=== PATIENT | male | born 1945 | race Caucasian/White ===

== ENCOUNTER → 2017-07-06 | Outpatient (CLI) | payer BC, MEDICARE ==
--- NOTE | 2017-07-06 12:43 | ECHOF ---
Referral Reason:hypertension I10 MEASUREMENTS -------- HEIGHT: 188.0 cm WEIGHT: 96.2 kg BP: RVIDd: 3.1 cm (< 3.3) IVSd: 1.0 cm (0.6 - 1.1) LVIDd: 5.3 cm (3.9 - 5.3) LVPWd: 1.1 cm (0.6 - 1.1) IVSs: 1.4 cm LVIDs: 3.7 cm LVPWs: 1.6 cm LA Diam: 4.2 cm (2.7 - 3.8) LAESV Index (A-L): 27.60 ml/m Ao Diam: 3.6 cm (2.0 - 3.7) AV Cusp: 2.4 cm (1.5 - 2.6) LA Diam: 4.2 cm (2.7 - 3.8) MV EXCURSION: 25.683 mm (> 18.000) MV EF SLOPE: 124 mm/s (70 - 150) EPSS: 0.9 cm MV E Edison: 0.56 m/s MV DecT: 149 ms MV A Edison: 0.53 m/s MV E/A Ratio: 1.05 RAP: 5.00 mmHg RVSP: 20.59 mmHg FINDINGS -------- Sinus rhythm. This was a technically good study. The left ventricular size is normal. Left ventricular wall thickness is normal. Overall left vent ricular systolic function is mildly impaired with, an EF between 45 - 50 %. Basal inferior LV wall motion is hypokinetic. The right ventricle is normal in size. The left atrium is mildly dilated. Normal LA size by volume 22+/-6 ml/m2. The right atrial size is normal. The aortic valve is trileaflet, and appears structurally normal. No aortic stenosis or regurgitation. Mild mitral annular calcification present. Mild mitral regurgitation is present. Mild tricuspid regurgitation present. There is no evidence of pulmonary hypertension. The right v entricular systolic pressure, as measured by Doppler, is 20.59mmHg. There is no pulmonic regurgitation present. The aortic root size is normal. There is no pericardial effusion. CONCLUSIONS -------- 1. The left ventricular size is normal. 2. Left ventricular wall thickness is normal. 3. The left atrium is mildly dilated. 4. Normal LA size by volume 22+/-6 ml/m2. 5. The aortic valve is trileaflet, and appears structurally normal. No aortic stenosis or regurgitati on. 6. Mild mitral annular calcification present. 7. Mild mitral regurgitation is present. 8. Mild tricuspid regurgitation present. 9. There is no evidence of pulmonary hypertension. 10. The right ventricular systolic pressure, as measured by Doppler, is 20.59mmHg. 11. There is no pulmonic regurgitation present. 12. The aortic root size is normal. CHIEF NURSE ANESTHETIST: Danette Gr RDCS
== END | disposition home or self-care (01) ==
LOC: RADECHMAIN 11:14
PROVIDERS: ATTEND Internal Medicine Cardiovascular Disease
DX: I08.1 Rheumatic disorders of both mitral and tricuspid valves (principal); I10 Essential (primary) hypertension
CPT/HCPCS: 93306

== ENCOUNTER 2023-01-28 13:14 | Inpatient (IN) | payer BC, MEDICARE ==
--- NOTE | 2023-01-28 13:47 | ED ---
Arrhythmia/Palpitations HPI - General Source: patient, RN notes reviewed Mode of arrival: ambulatory Limitations: no limitations <Jaquan Land - Last Filed: 01/28/23 13:46> - General Source: patient, RN notes reviewed, old records reviewed <Rickey Palencia - Last Filed: 01/28/23 20:10> - General Chief Complaint: Arrhythmia/Palpitations Stated Complaint: ABNORMAL EKG Time Seen by Provider: 01/28/23 13:46 - History of Present Illness Initial Comments: 77-year-old male presents emergency Department from PCPs clinic for evaluation of A fibrillation. Patient has no history states she's not been feeling well states he is sent over there for further evaluation denies chest pain. He states he has some congestion, upper respiratory symptoms. (Jaquan Land) Patient presents initially evaluated as a quick note. He has been feeling lightheaded and had 2 syncopal episodes last night. Is not on blood thinners. Was found to have new onset A. fib at his PCPs office. Presents for further evaluation at this time. Has no acute complaints at this time. Denies any coughing. Denies any nausea, vomiting, abdominal pain. Unknown if he has had. No history of A. fib. No lower extremity edema or swelling or pain. No history of blood clots. Presents for further evaluation. Denies chest pain. (Rickey Palencia) - Related Data Home Medications Medication Instructions Recorded Confirmed Aspirin 81 mg PO HS 01/09/14 01/28/23 Metoprolol Tartrate 25 mg PO DAILY 01/09/14 01/28/23 Simvastatin [Zocor] 20 mg PO HS 01/28/23 01/28/23 Allergies Allergy/AdvReac Type Severity Reaction Status Date / Time No Known Allergies Allergy Verified 01/28/23 18:21 Review of Systems ROS Other: All systems not noted in ROS Statement are negative. <Jaquan Land - Last Filed: 01/28/23 13:46> ROS Other: All systems not noted in ROS Statement are negative. <Rickey Palencia - Last Filed: 01/28/23 20:10> ROS Statement: Those systems with pertinent positive or pertinent negative responses have been documented in the HPI. Review of Systems: CONST: Denies fever EYES: Denies blurry vision ENT: Denies nasal congestion C/V: Denies Chest pain RESP: Denies shortness of breath GI: Denies abdominal pain : Denies dysuria SKIN: Denies rash. MSK: Denies joint pain. NEURO: Denies headache (Rickey Palencia) Past Medical History Past Medical History: CVA/TIA, Hyperlipidemia, Hypertension History of Any Multi-Drug Resistant Organisms: None Reported Past Surgical History: Coronary Bypass/CABG Additional Past Surgical History / Comment(s): Hip replacement x3, CABG 2011, one stent 2010. Past Psychological History: No Psychological Hx Reported Past Alcohol Use History: None Reported, Occasional Past Drug Use History: None Reported <Jaquan Land - Last Filed: 01/28/23 13:46> General Exam Limitations: no limitations <Jaquan Land - Last Filed: 01/28/23 13:46> <Rickey Palencia - Last Filed: 01/28/23 20:10> - General Exam Comments Initial Comments: Visual Physical Exam Vital signs reviewed General: Well-appearing, nontoxic, no acute distress. Head: Normocephalic, atraumatic Eyes: PERRLA, EOMI ENT: Airway patent Chest: Nonlabored breathing Skin: No visual rash, normal skin tone Neuro: Alert and oriented 3 Musculoskeletal: No gross abnormalities (Jaquan Land) General: Appears in no acute distress. HEAD: Normal with no signs of head trauma. EYES: PERRLA, EOMI, conjunctiva normal, no discharge. ENT: Hearing grossly intact, normal oropharynx. RESPIRATORY: Clear breath sounds bilaterally. No wheezes, rales, or rhonchi. C/V: Regular rate and rhythm. S1 and S2 auscultated, no edema, peripheral pulses 2+ and intact throughout ABD: Abd is soft, nontender, nondistended EXT: Normal range of motion, no obvious deformity SKIN: No rashes or lesions observed on exposed skin. NEURO: Alert and oriented x 4. Cranial nerves II-XII intact. No focal sensory or strength deficits. (Rickey Palencia) Course Vital Signs 01/28/23 01/28/23 01/28/23 13:21 16:33 17:00 Temperature 98.8 F Pulse Rate 106 H 86 68 Pulse Rate [ Car Wash Supervisor ] Respiratory 18 16 16 Rate Blood Pressure 138/72 114/72 120/68 O2 Sat by Pulse 96 97 98 Oximetry 1001/28/23 01/28/23 17:07 17:58 19:15 Temperature 100.3 F H Pulse Rate 79 87 Pulse Rate [ 77 Car Wash Supervisor ] Respiratory 16 18 Rate Blood Pressure 116/78 112/72 O2 Sat by Pulse 98 98 Oximetry Medical Decision Making <Jaquan Land - Last Filed: 01/28/23 13:46> - Lab Data Result diagrams: 01/28/23 13:51 01/28/23 13:51 - EKG Data -: EKG Interpreted by Me <Rickey Palencia - Last Filed: 01/28/23 20:10> - Medical Decision Making I performed the quick note portion of this chart signed Jaquan Land PA-C (Jaquan Land) Was pt. sent in by a medical professional or institution ([facility], LAND LEASING EXAMINER, urgent care, hospital, or [facility]...) When possible be specific @ -No Did you speak to anyone other than the patient for history (EMS, parent, family, police, friend...)? What history was obtained from this source @ -No Did you review nursing and triage notes (agree or disagree)? Why? @ -I reviewed and agree with nursing and triage notes Were old charts reviewed (outside hosp., previous admission, EMS record, old EKG, old radiological studies, urgent care reports/EKG's, [facility] records)? Report findings @ -No old charts were reviewed Differential Diagnosis (chest pain, altered mental status, abdominal pain women, abdominal pain men, vaginal bleeding, weakness, fever, dyspnea, syncope, headache, dizziness, GI bleed, back pain, seizure, CVA, palpatations, mental health, musculoskeletal)? @ -Differential Palpitations Ventricular arrhythmias, atrial arrhythmias, myocardial infarction, anemia, thyrotoxicosis, electrolyte imbalance, hypokalemia, pulmonary embolism, pulmonary disease, drugs, alcohol, anxiety, stress.... This is not meant to be an all-inclusive list. EKG interpreted by me (3pts min.). @ -As above X-rays interpreted by me (1pt min.). @ -Chest X-ray shows no obvious acute cardio pulmonary process. CT interpreted by me (1pt min.). @ -CT brain reveals no obvious acute intracranial process. CT PE reveals no evidence of pulmonary embolism. Patient does have evidence of a right-sided pulmonary nodule as well as left sided pulmonary nodule. U/S interpreted by me (1pt. min.). @ -NEGATIVE FOR DVT What testing was considered but not performed or refused? (CT, X-rays, U/S, labs)? Why? @ -None What meds were considered but not given or refused? Why? @ -None Did you discuss the management of the patient with other professionals (professionals i.e. DrFletcher, PA, LAND LEASING EXAMINER, lab, RT, psych nurse, social science instructor, conservation engineer, teacher, minesweeping officer, case folder)? Give summary @ -No Was smoking cessation discussed for >3mins.? @ -No Was critical care preformed (if so, how long)? @ -No Were there social determinants of health that impacted care today? How? (Homelessness, low income, unemployed, alcoholism, drug addiction, transportation, low edu. Level, literacy, decrease access to med. care, group home, rehab)? @ -No Was there de-escalation of care discussed even if they declined (Discuss DNR or withdrawal of care, Hospice)? DNR status @ -No What co-morbidities impacted this encounter? (DM, HTN, Smoking, COPD, CAD, Cancer, CVA, ARF, Chemo, Hep., AIDS, mental health diagnosis, sleep apnea, morbid obesity)? @ -None Was patient admitted / discharged? Hospital course, mention meds given and route, prescriptions, significant lab abnormalities, going to OR and other pertinent info. @ -Based on the patient's presentation and physical exam, I'm concerned for new-onset atrial fibrillation. We will obtain cardio pulmonary workup. He was in agreement this plan. Vital signs within acceptable limits. He was given a 1 L fluid bolus. EKG showed A. fib/flutter with no evidence of acute ischemic process. Labs r emarkable for an elevated d-dimer of 3.01. Troponin indeterminate. Labs also remarkable for a COVID-19 infection and patient is febrile. Due to the elevated dimer, we will obtain a CT PE. This is negative for PE but does show bilateral pulmonary nodules. Ultrasound of the lower extremity is also negative. Patient is already rate controlled on metoprolol for his A. fib and therefore does not require any additional medications at this time. I discussed with the patient I would like to admit to have cardiology evaluate. He was still in A. fib at this time. Patient was in agreement this plan. We'll hold off on blood thinners but I will start the patient on prophylactic Lovenox. Patient was in agreement this plan. He has a fever now from the Covid and we will treat with Tylenol. I spoke with the admitting physician, Dr. Mohamud who accepted the patient. Undiagnosed new problem with uncertain prognosis? @ -No Drug Therapy requiring intensive monitoring for toxicity (Heparin, Nitro, Insulin, Cardizem)? @ -No Were any procedures done? @ -No Diagnosis/symptom? @ -New-onset atrial fibrillation, COVID-19 infection Acute, or Chronic, or Acute on Chronic? @ -Acute Uncomplicated (without systemic symptoms) or Complicated (systemic symptoms)? @ -Complicated Side effects of treatment? @ -No Exacerbation, Progression, or Severe Exacerbation? @ -No Poses a threat to life or bodily function? How? (Chest pain, [place], [place], pneumonia, PE, COPD, DKA, ARF, appy, cholecystitis, CVA, Diverticulitis, Homicidal, Suicidal, threat to staff... and all critical care pts) @ -yes (Rickey Palencia) - Lab Data Lab Results 01/28/23 01/28/23 01/28/23 Range/Units 13:51 13:51 13:51 WBC 7.1 (3.8-10.6) k/uL RBC 4.04 L (4.30-5.90) m/uL Hgb 12.8 L (13.0-17.5) gm/dL Hct 38.3 L (39.0-53.0) % MCV 94.8 (80.0-100.0) fL MCH 31.6 (25.0-35.0) pg MCHC 33.3 (31.0-37.0) g/dL RDW 13.2 (11.5-15.5) % Plt Count 139 L (150-450) k/uL MPV 8.0 Neutrophils % 84 % Lymphocytes % 6 % Monocytes % 8 % Eosinophils % 0 % Basophils % 0 % Neutrophils # 6.0 (1.3-7.7) k/uL Lymphocytes # 0.4 L (1.0-4.8) k/uL Monocytes # 0.6 (0-1.0) k/uL Eosinophils # 0.0 (0-0.7) k/uL Basophils # 0.0 (0-0.2) k/uL PT 11.1 (10.0-12.5) sec INR 1.0 (<1.2) APTT 22.9 (22.0-30.0) sec D-Dimer (<0.60) mg/L FEU Sodium 137 (137-145) mmol/L Potassium 4.3 (3.5-5.1) mmol/L Chloride 101 (98-107) mmol/L Carbon Dioxide 25 (22-30) mmol/L Anion Gap 11 mmol/L BUN 27 H (9-20) mg/dL Creatinine 0.84 (0.66-1.25) mg/dL Est GFR (CKD-EPI)AfAm >90 (>60 ml/min/1.73 sqM) Est GFR (CKD-EPI)NonAf 85 (>60 ml/min/1.73 sqM) Glucose 125 H (74-99) mg/dL Calcium 9.3 (8.4-10.2) mg/dL Total Bilirubin 0.9 (0.2-1.3) mg/dL AST 37 (17-59) U/L ALT 25 (4-49) U/L Alkaline Phosphatase 69 (38-126) U/L Troponin I (0.000-0.034) ng/mL NT-Pro-B Natriuret Pep pg/mL Total Protein 7.3 (6.3-8.2) g/dL Albumin 4.5 (3.5-5.0) g/dL Urine Color Urine Appearance (Clear) Urine pH (5.0-8.0) Ur Specific [place] (1.001-1.035) Urine Protein (Negative) Urine Glucose (UA) (Negative) Urine Ketones (Negative) Urine Blood (Negative) Urine Nitrite (Negative) Urine Bilirubin (Negative) Urine Urobilinogen (<2.0) mg/dL Ur Leukocyte Esterase (Negative) Urine RBC (0-5) /hpf Urine WBC (0-5) /hpf Hyaline Casts (0-2) /lpf Urine Mucus (None) /hpf Influenza Type A (PCR) (Not Detectd) Influenza Type B (PCR) (Not Detectd) RSV (PCR) (Not Detectd) SARS-CoV-2 (PCR) (Not Detectd) 10/18/23 10/18/23 10/18/23 Range/Units 13:51 16:33 16:56 WBC (3.8-10.6) k/uL RBC (4.30-5.90) m/uL Hgb (13.0-17.5) gm/dL Hct (39.0-53.0) % MCV (80.0-100.0) fL MCH (25.0-35.0) pg MCHC (31.0-37.0) g/dL RDW (11.5-15.5) % Plt Count (150-450) k/uL MPV Neutrophils % % Lymphocytes % % Monocytes % % Eosinophils % % Basophils % % Neutrophils # (1.3-7.7) k/uL Lymphocytes # (1.0-4.8) k/uL Monocytes # (0-1.0) k/uL Eosinophils # (0-0.7) k/uL Basophils # (0-0.2) k/uL PT (10.0-12.5) sec INR (<1.2) APTT (22.0-30.0) sec D-Dimer 3.01 H (<0.60) mg/L FEU Sodium (137-145) mmol/L Potassium (3.5-5.1) mmol/L Chloride (98-107) mmol/L Carbon Dioxide (22-30) mmol/L Anion Gap mmol/L BUN (9-20) mg/dL Creatinine (0.66-1.25) mg/dL Est GFR (CKD-EPI)AfAm (>60 ml/min/1.73 sqM) Est GFR (CKD-EPI)NonAf (>60 ml/min/1.73 sqM) Glucose (74-99) mg/dL Calcium (8.4-10.2) mg/dL Total Bilirubin (0.2-1.3) mg/dL AST (17-59) U/L ALT (4-49) U/L Alkaline Phosphatase (38-126) U/L Troponin I 0.020 (0.000-0.034) ng/mL NT-Pro-B Natriuret Pep pg/mL Total Protein (6.3-8.2) g/dL Albumin (3.5-5.0) g/dL Urine Color Urine Appearance (Clear) Urine pH (5.0-8.0) Ur Specific [place] (1.001-1.035) Urine Protein (Negative) Urine Glucose (UA) (Negative) Urine Ketones (Negative) Urine Blood (Negative) Urine Nitrite (Negative) Urine Bilirubin (Negative) Urine Urobilinogen (<2.0) mg/dL Ur Leukocyte Esterase (Negative) Urine RBC (0-5) /hpf Urine WBC (0-5) /hpf Hyaline Casts (0-2) /lpf Urine Mucus (None) /hpf Influenza Type A (PCR) Not Detected (Not Detectd) Influenza Type B (PCR) Not Detected (Not Detectd) RSV (PCR) Not Detected (Not Detectd) SARS-CoV-2 (PCR) Detected A (Not Detectd) 01/28/23 01/28/23 Range/Units 17:01 17:04 WBC (3.8-10.6) k/uL RBC (4.30-5.90) m/uL Hgb (13.0-17.5) gm/dL Hct (39.0-53.0) % MCV (80.0-100.0) fL MCH (25.0-35.0) pg MCHC (31.0-37.0) g/dL RDW (11.5-15.5) % Plt Count (150-450) k/uL MPV Neutrophils % % Lymphocytes % % Monocytes % % Eosinophils % % Basophils % % Neutrophils # (1.3-7.7) k/uL Lymphocytes # (1.0-4.8) k/uL Monocytes # (0-1.0) k/uL Eosinophils # (0-0.7) k/uL Basophils # (0-0.2) k/uL PT (10.0-12.5) sec INR (<1.2) APTT (22.0-30.0) sec D-Dimer (<0.60) mg/L FEU Sodium (137-145) mmol/L Potassium (3.5-5.1) mmol/L Chloride (98-107) mmol/L Carbon Dioxide (22-30) mmol/L Anion Gap mmol/L BUN (9-20) mg/dL Creatinine (0.66-1.25) mg/dL Est GFR (CKD-EPI)AfAm (>60 ml/min/1.73 sqM) Est GFR (CKD-EPI)NonAf (>60 ml/min/1.73 sqM) Glucose (74-99) mg/dL Calcium (8.4-10.2) mg/dL Total Bilirubin (0.2-1.3) mg/dL AST (17-59) U/L ALT (4-49) U/L Alkaline Phosphatase (38-126) U/L Troponin I (0.000-0.034) ng/mL NT-Pro-B Natriuret Pep 4520 pg/mL Total Protein (6.3-8.2) g/dL Albumin (3.5-5.0) g/dL Urine Color Yellow Urine Appearance Clear (Clear) Urine pH 5.0 (5.0-8.0) Ur Specific [place] 1.020 (1.001-1.035) Urine Protein Trace H (Negative) Urine Glucose (UA) Negative (Negative) Urine Ketones Trace H (Negative) Urine Blood Trace H (Negative) Urine Nitrite Negative (Negative) Urine Bilirubin Negative (Negative) Urine Urobilinogen <2.0 (<2.0) mg/dL Ur Leukocyte Esterase Negative (Negative) Urine RBC 1 (0-5) /hpf Urine WBC 2 (0-5) /hpf Hyaline Casts 7 H (0-2) /lpf Urine Mucus Moderate H (None) /hpf Influenza Type A (PCR) (Not Detectd) Influenza Type B (PCR) (Not Detectd) RSV (PCR) (Not Detectd) SARS-CoV-2 (PCR) (Not Detectd) - EKG Data EKG Comments: 12-lead Electrocardiogram Interpretation Note EKG was reviewed and interpreted by myself. 12-lead ECG performed at 1340 is interpreted by me as revealing atrial flutter/fib at a rate of 101 beats per minute. [place] is normal. QRS duration is 94 ms, QTc is 406 ms.. There were no ST or T wave abnormalities to suggest myocardial ischemia or injury. R wave progression across the precordium was satisfactory. By my interpretation this EKG is non-diagnostic for acute ischemia. (Rickey Palencia) Disposition <Jaquan Ladn - Last Filed: 01/28/23 13:46> Time of Disposition: 18:25 <Rickey Palencia - Last Filed: 01/28/23 20:10> Clinical Impression: Atrial fibrillation, COVID-19 Disposition: ADMITTED IP TO THIS HOSP Condition: Stable
[2023-01-28 13:59] LABS: Basophils % (A) 0 %; Eosinophils % (A) 0 %; HCT 38.3 % (39.0-53.0); HGB 12.8 gm/dL (13.0-17.5); Lymphocytes # (A) 0.4 k/uL (1.0-4.8); Lymphocytes % (A) 6 %; MCH 31.6 pg (25.0-35.0); MCHC 33.3 g/dL (31.0-37.0); MCV 94.8 fL (80.0-100.0); Monocytes # (A) 0.6 k/uL (0-1.0); Monocytes % (A) 8 %; Neutrophils % (A) 84 %; Platelet Count 139 k/uL (150-450); RBC 4.04 m/uL (4.30-5.90); RDW 13.2 % (11.5-15.5); WBC 7.1 k/uL (3.8-10.6)
[2023-01-28 14:22] LABS: AST 37 U/L (17-59); African American GFR (CKD) >90 (>60 ml/min/1.73 sqM); Albumin 4.5 g/dL (3.5-5.0); Calcium 9.3 mg/dL (8.4-10.2); Carbon Dioxide 25 mmol/L (22-30); Chloride 101 mmol/L (98-107); Glucose 125 mg/dL (74-99); Non-African American GFR(CKD) 85 (>60 ml/min/1.73 sqM); Partial Thromboplastin Time 22.9 sec (22.0-30.0); Prothrombin Time 11.1 sec (10.0-12.5); Total Bilirubin 0.9 mg/dL (0.2-1.3); Total Protein 7.3 g/dL (6.3-8.2)
[2023-01-28 14:38] LABS: ALT 25 U/L (4-49); Alkaline Phosphatase 69 U/L (38-126); Anion Gap 11 mmol/L; Blood Urea Nitrogen 27 mg/dL (9-20); Potassium 4.3 mmol/L (3.5-5.1); Sodium 137 mmol/L (137-145)
[2023-01-28 17:32] LABS: Appearance,Urine Clear (Clear); Bilirubin,Urine Negative (Negative); Blood,Urine Trace (Negative); Color,Urine Yellow; Glucose,Urine (UA) Negative (Negative); Hyaline Casts,Urine 7 /lpf (0-2); Ketones,Urine Trace (Negative); Leukocyte Esterase,Urine Negative (Negative); Mucus,Urine Moderate /hpf; Nitrite,Urine Negative (Negative); Protein,Urine Trace (Negative); RBC,Urine 1 /hpf (0-5); Urobilinogen,Urine <2.0 mg/dL (<2.0); WBC,Urine 2 /hpf (0-5)
--- NOTE | 2023-01-28 17:52 | CT ---
EXAMINATION TYPE: CT brain wo con CT DLP: 1218.4 mGycm, Automated exposure control for dose reduction was used. DATE OF EXAM: 01/28/2023 5:20 PM COMPARISON: 01/09/2014. CLINICAL INDICATION:Male, 77 years old with history of fall, ams TECHNIQUE: Brain: Axial CT images of the brain were obtained with coronal and sagittal reformats created and rev iewed. Contrast used: None. Oral contrast used: None. FINDINGS: Brain: Extra-axial spaces: No abnormal extra-axial fluid collections. Ventricular system: Dilatation in proportion to cerebral atrophy. Cerebral parenchyma: No acute intraparenchymal hemorrhage or mass effect. The meza-white junction is well differentiated. Scattered hypoattenuating areas are seen within the white matter. Cerebellum: Unremarkable. Mass effect: No evidence of midline shift. Intracranial vasculature: Atherosclerotic calcifications of the intracranial vessels. Soft tissues: Normal. Calvarium/osseous structures: No depressed skull fracture. Paranasal sinuses and mastoid air cells: Mild scattered paranasal sinus disease. Visualized orbits: Bilateral aphakia IMPRESSION: 1. No acute intracranial process. 2. Nonspecific white matter changes, likely secondary to chronic small vessel ischemic disease.
--- NOTE | 2023-01-28 18:15 | CT ---
EXAMINATION TYPE: CT angio chest CT DLP: 452.8 mGycm, Automated exposure control for dose reduction was used. DATE OF EXAM: 01/28/2023 5:22 PM COMPARISON: Chest radiograph from same day. CLINICAL INDICATION:Male, 77 years old with history of eval for PE; r/o PE TECHNIQUE/CONTRAST: CTA scan of the thorax is performed with IV Contrast, patient injected with 100 mL of Isovue 370, MIP images are created and reviewed these are created on a separate workstation.. FINDINGS: Pulmonary Artery: There is no evidence for a filling defect within the pulmonary vasculature to sugge st acute pulmonary embolism. The pulmonary artery is of normal size. Lungs/Pleura: Somewhat spiculated right middle lobe 7 mm pulmonary nodule does appear along the minor fissure and could represent intrafissural lymph node. Left lower lobe 5 mm pulmonary nodule. No evid ence of focal consolidation, pleural effusion or pneumothorax. Airway: Large airways are patent. Heart: Heart is within normal limits for size. Vasculature: No evidence of aortic aneurysm. Mediastinum: No gross evidence of adenopathy. Musculoskeletal: No acute osseous abnormalities, sternotomy changes. Soft Tissues: Unremarkable. Lower neck: No significant findings. Upper Abdomen: No significant findings. IMPRESSION: 1. No evidence of pulmonary embolism. 2. Somewhat spiculated right middle lobe 7 mm pulmonary nodule does appear along the minor fissure an d could represent intrafissural lymph node. Additional 5 mm pulmonary nodule also present in the left lower lobe. Follow-up CT chest in 3-6 months recommended to ensure stability.
--- NOTE | 2023-01-28 18:34 | US ---
EXAMINATION TYPE: US venous doppler duplex LE DATE OF EXAM: 01/28/2023 4:59 PM COMPARISON: NONE CLINICAL INDICATION: Male, 77 years old with history of eval for dvt; No hx of DVT. Not on blood thin ners. No leg pain. No difficulty breathing. SIDE PERFORMED: Bilateral TECHNIQUE: The lower extremity deep venous system is examined utilizing real time linear array sonog megan with graded compression, doppler sonography and color-flow sonography. VESSELS IMAGED: Common Femoral Vein Deep Femoral Vein Greater Saphenous Vein * Femoral Vein Popliteal Vein Small Saphenous Vein * Proximal Calf Veins (* superficial vessels) Right Leg: Negative for DVT Left Leg: Negative for DVT IMPRESSION: Grayscale, color doppler, spectral doppler imaging performed of the deep veins of the lo wer extremities. There is normal flow, compressibility, vascular waveforms.
--- NOTE | 2023-01-28 18:45 | XR ---
EXAMINATION TYPE: XR chest 2V DATE OF EXAM: 01/28/2023 6:42 PM CLINICAL INDICATION:Male, 77 years old with history of cough; COMPARISON: Chest radiographs from 01/09/2014 TECHNIQUE: XR chest 2V Frontal and lateral views of the chest. 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 There is no evidence of pleural effusion, focal consolidation, or pneumothorax. Pulmonary vascularity: Unremarkable. Heart/mediastinum: Cardiomediastinal silhouette is unremarkable. Musculoskeletal: No acute osseous pathology. Midline sternotomy wires are noted. IMPRESSION: Eventration of the right diaphragm. No evidence for acute process.
[2023-01-28] MEDS ORDERED: NALOXONE 0.4 MG/ML 1 ML VIAL IV PRN (18:53)
[2023-01-28] MEDS ORDERED: ENOXAPARIN 40 MG/0.4 ML SYRINGE SQ SCH (19:00)
[2023-01-28] MEDS: ASPIRIN 81 MG PO SCH (19:42)
[2023-01-28] MEDS: ACETAMINOPHEN TAB 325 MG TAB PO PRN (19:42)
[2023-01-28] MEDS ORDERED: ATORVASTATIN 10 MG TAB PO SCH (21:00)
[2023-01-29] MEDS ORDERED: ACETAMINOPHEN TAB 325 MG TAB ONE (05:30)
[2023-01-29 07:49] LABS: Basophils % (A) 0 %; Eosinophils % (A) 0 %; HCT 37.2 % (39.0-53.0); HGB 12.4 gm/dL (13.0-17.5); Lymphocytes # (A) 0.3 k/uL (1.0-4.8); Lymphocytes % (A) 4 %; MCH 31.4 pg (25.0-35.0); MCHC 33.3 g/dL (31.0-37.0); MCV 94.4 fL (80.0-100.0); Mean Platelet Volume 8.2; Monocytes # (A) 0.3 k/uL (0-1.0); Monocytes % (A) 6 %; Neutrophils # (A) 5.4 k/uL (1.3-7.7); Neutrophils % (A) 89 %; Platelet Count 127 k/uL (150-450); RBC 3.94 m/uL (4.30-5.90); RDW 13.2 % (11.5-15.5); WBC 6.1 k/uL (3.8-10.6)
[2023-01-29 08:57] LABS: African American GFR (CKD) >90 (>60 ml/min/1.73 sqM); Anion Gap 8 mmol/L; Blood Urea Nitrogen 23 mg/dL (9-20); Calcium 8.8 mg/dL (8.4-10.2); Carbon Dioxide 25 mmol/L (22-30); Chloride 104 mmol/L (98-107); Glucose 129 mg/dL (74-99); Non-African American GFR(CKD) >90 (>60 ml/min/1.73 sqM); Potassium 3.8 mmol/L (3.5-5.1); Sodium 137 mmol/L (137-145)
[2023-01-29] MEDS ORDERED: METOPROLOL TARTRATE 25 MG TAB PO SCH (09:00)
[2023-01-29] MEDS: METOPROLOL SUCCINATE (ER) 50 MG TAB.ER.24H PO SCH (09:21)
[2023-01-29] MEDS: APIXABAN 5 MG TAB PO SCH ×2 (09:21→22:23)
--- NOTE | 2023-01-29 10:01 | P.CRDCN ---
History of Present Illness History of present illness: HISTORY OF PRESENT ILLNESS: This is a 77-year-old male with a past medical history significant for hyperlipidemia and coronary artery disease with previous 2 vessel CABG in 2013. Patient follows with Dr. Maldonado out of town. We have been asked to see the patient in consultation for atrial fibrillation. Patient examined at the bedside in the emergency room. The patient states he has been feeling unwell for the past 2-3 days. He reports generalized weakness, decreased appetite, and cough. He reports 2 nights ago he got up to use the bathroom around 10 PM and after using the restroom he had a syncopal episode next to the toilet. He states that he walked back to his bed and went back to sleep. He states he got up again in the middle of the night use the bathroom and while walking back to bed he had another syncopal episode. The patient denied having any chest pain or pressure. He denied any shortness of breath. He denied any dizziness or lightheadedness. He denied having any palpitations. The patient does report having a history of syncope when he has been dehydrated in the past. He also reports having syncopal episodes after his hip replacements when he got out of bed too quickly. The patient presented to the hospital for further evaluation. The patient was found to be positive for Covid 19. He is currently febrile this morning with a temperature of 101.0F. The patient was also found to be in A. fib with a heart rate of 101 upon admission to the hospital. The patient denies a history of atrial fibrillation. He denied having any palpitations. The patient has since converted to sinus mechanism and is maintaining sinus mechanism this morning. * EKG reveals atrial fibrillation with heart rate of 101. No signs of acute ischemia. * Chest xray no evidence for acute process. * Current home cardiac medications include atorvastatin 20 mg at night, metoprolol titrate 25 mg daily, aspirin 81 mg at night * Venous Doppler: Negative for DVT bilaterally REVIEW OF SYSTEMS: At the time of my exam: CONSTITUTIONAL: Denies fever or chills. HEENT: Denies blurred vision, vision changes, or eye pain. Denies hemoptysis CARDIOVASCULAR: Denies chest pain. Denies orthopnea. Denies PND. Denies palpitations RESPIRATORY: Denies shortness of breath. GASTROINTESTINAL: Denies abdominal pain. Denies nausea or vomiting. HEMATOLOGIC: Denies bleeding disorders. GENITOURINARY: Denies any blood in urine. SKIN: Denies pruitis. Denies rash. PHYSICAL EXAM: VITAL SIGNS: Reviewed. GENERAL: Well-developed in no acute distress. HEENT: Head is normocephalic. Pupils are equal, round. Sclerae anicteric. Mucous membranes of the mouth are moist. Neck supple. No JVD or thyromegaly LUNGS: Respirations even and unlabored. Lungs essentially clear to auscultation bilaterally. HEART: Regular rate and rhythm. S1 and S2 heard. ABDOMEN: Soft. Nondistended. Nontender. EXTREMITIES: Normal range of motion. No clubbing or cyanosis. Peripheral pulses intact. No lower extremity edema NEUROLOGIC: Awake and alert. Oriented x 3. ASSESSMENT: Generalized malaise Decreased oral intake Acute Covid 19 Febrile illness, secondary to above Syncope, likely secondary to orthostatic hypotension/hypovolemia due to decreased oral intake New onset paroxysmal atrial fibrillation, currently maintaining sinus mechanism Coronary artery disease with previous 2 vessel CABG, 2012, at [facility] Hypertension Hyperlipidemia PLAN: Obtain 2-D echo to assess cardiac structure and function Check TSH Begin Eliquis 5 mg twice a day Change metoprolol to metoprolol succinate 50 mg daily Continue telemetry monitoring Further recommendations pending patient's course Patient to follow up with his primary director airport operations post discharge Nurse practitioner note has been reviewed by physician. Signing provider agrees with the documented findings, assessment, and plan of care. Past Medical History Past Medical History: CVA/TIA, Hyperlipidemia, Hypertension History of Any Multi-Drug Resistant Organisms: None Reported Past Surgical History: Coronary Bypass/CABG Additional Past Surgical History / Comment(s): Hip replacement x3, CABG 2010, one stent 2010. Past Psychological History: No Psychological Hx Reported Past Alcohol Use History: None Reported, Occasional Past Drug Use History: None Reported Medications and Allergies Home Medications Medication Instructions Recorded Confirmed Type Aspirin 81 mg PO HS 01/09/14 01/28/23 History Metoprolol Tartrate 25 mg PO DAILY 01/09/14 01/28/23 History Simvastatin [Zocor] 20 mg PO HS 01/28/23 01/28/23 History Allergies Allergy/AdvReac Type Severity Reaction Status Date / Time No Known Allergies Allergy Verified 01/28/23 18:21 Physical Exam Vitals: Vital Signs Temp Pulse Pulse Resp BP Pulse Ox 01/29/23 06:25 101 F H 92 18 161/91 98 01/29/23 05:20 102.3 F H 110 H 18 98 01/28/23 21:35 99.3 F 87 20 112/67 95 01/28/23 19:15 100.3 F H 87 18 112/72 98 01/28/23 17:58 79 16 116/78 98 01/28/23 17:07 77 01/28/23 17:00 68 16 120/68 98 01/28/23 16:33 86 16 114/72 97 01/28/23 13:21 98.8 F 106 H 18 138/72 96 Results 01/29/23 07:29 01/29/23 07:29 Cardiac Enzymes 01/28/23 01/28/23 01/28/23 Range/Units 13:51 13:51 21:00 AST 37 (17-59) U/L Troponin I 0.020 0.019 (0.000-0.034) ng/mL 01/29/23 Range/Units 00:25 AST (17-59) U/L Troponin I 0.022 (0.000-0.034) ng/mL Coagulation 01/28/23 Range/Units 13:51 PT 11.1 (10.0-12.5) sec APTT 22.9 (22.0-30.0) sec CBC 01/28/23 01/29/23 Range/Units 13:51 07:29 WBC 7.1 6.1 (3.8-10.6) k/uL RBC 4.04 L 3.94 L (4.30-5.90) m/uL Hgb 12.8 L 12.4 L (13.0-17.5) gm/dL Hct 38.3 L 37.2 L (39.0-53.0) % Plt Count 139 L 127 L (150-450) k/uL Comprehensive Metabolic Panel 01/28/23 Range/Units 13:51 Sodium 137 (137-145) mmol/L Potassium 4.3 (3.5-5.1) mmol/L Chloride 101 (98-107) mmol/L Carbon Dioxide 25 (22-30) mmol/L BUN 27 H (9-20) mg/dL Creatinine 0.84 (0.66-1.25) mg/dL Glucose 125 H (74-99) mg/dL Calcium 9.3 (8.4-10.2) mg/dL AST 37 (17-59) U/L ALT 25 (4-49) U/L Alkaline Phosphatase 69 (38-126) U/L Total Protein 7.3 (6.3-8.2) g/dL Albumin 4.5 (3.5-5.0) g/dL Current Medications Generic Name Dose Route Start Last Admin Trade Name Freq PRN Reason Stop Dose Admin Acetaminophen 650 mg 01/28/23 18:53 01/28/23 19:42 Acetaminophen Tab 325 Mg Tab PO 650 mg Q6HR PRN Administration Mild Pain or Fever > 100.5 Apixaban 5 mg 01/29/23 09:00 Apixaban 5 Mg Tab PO BID MORGAN Protocol Aspirin 81 mg 01/28/23 21:00 01/28/23 19:42 Aspirin 81 Mg PO 81 mg HS MORGAN Administration Atorvastatin Calcium 10 mg 01/28/23 21:00 01/28/23 19:42 Atorvastatin 10 Mg Tab PO 10 mg HS MORGAN Administration Naloxone HCl 0.2 mg 01/28/23 18:53 Naloxone 0.4 Mg/Ml 1 Ml Vial IV Q2M PRN Opioid Reversal 01/29/23 07:29 01/28/23 13:51
[2023-01-29] MEDS ORDERED: ONDANSETRON 4 MG/2 ML VIAL IVP PRN (11:59)
[2023-01-29] MEDS ORDERED: CALCIUM CARBONATE 500 MG CHEWABLE PO PRN (11:59)
[2023-01-29] MEDS ORDERED: LACTULOSE 20 GM/30 ML CUP PO PRN (11:59)
[2023-01-29] MEDS ORDERED: MELATONIN 3 MG TABLET PO PRN (11:59)
[2023-01-29] MEDS ORDERED: ALPRAZolam 0.25 MG TAB PO PRN (11:59)
--- NOTE | 2023-01-29 17:03 | CA ---
Transthoracic Echo Report Name: Graeme Cleveland Age: 77 Gender: M : 1945 Exam Date: 01/29/2023 12:20 Exam Location: [place] [facility] Ht (in): 76 Wt (lb): 200 Ordering Physician: Rickey Palencia MD Attending/Referring Phys: C[employer] Operator Apprentice Phill Nichols Procedure CPT: Indications: New onset afib Cardiac Hx: Technical Quality: Technically difficult study Contrast 1: Lumason Total Dose (mL): 5 Contrast 2: Total Dose (mL): MEASUREMENTS (Male / Female) Normal Values 2D ECHO LV Diastolic Diameter PLAX 4.8 cm 4.2 - 5.9 / 3.9 - 5.3 cm LV Systolic Diameter PLAX 3.0 cm IVS Diastolic Thickness 1.0 cm 0.6 - 1.0 / 0.6 - 0.9 cm LVPW Diastolic Thickness 0.9 cm 0.6 - 1.0 / 0.6 - 0.9 cm LV Relative Wall Thickness 0.4 RV Internal Dim ED PLAX 2.8 cm LVOT Diameter 2.1 cm Aortic Root Diameter 3.4 cm LA Systolic Diameter LX 3.2 cm 3.0 - 4.0 / 2.7 - 3.8 cm LV Diastolic Volume MOD BP 60.7 cm??? 67 - 155 / 56 - 104 cm??? LV Systolic Volume MOD BP 19.5 cm??? 22 - 58 / 19 - 49 cm??? LV Ejection Fraction MOD BP 68.0 % >= 55 % LV Cardiac Index MOD BP 1627.3 cm???/min???m??? LV Diastolic Volume MOD 4C 56.8 cm??? LV Systolic Volume MOD 4C 21.9 cm??? LV Ejection Fraction MOD 4C 61.4 % LV Cardiac Index MOD 4C 1373.2 cm???/min???m??? LV Diastolic Length 4C 7.0 cm LV Systolic Length 4C 5.8 cm LV Diastolic Volume MOD 2C 64.5 cm??? LV Systolic Volume MOD 2C 16.6 cm??? LV Ejection Fraction MOD 2C 74.3 % LV Cardiac Index MOD 2C 1888.9 cm???/min???m??? LV Diastolic Length 2C 6.9 cm LV Systolic Length 2C 6.1 cm LA Volume 86.3 cm??? 18 - 58 / 22 - 52 cm??? LA Volume Index 39.1 cm???/m??? 16 - 28 cm???/m??? DOPPLER AV Peak Velocity 97.1 cm/s AV Peak Gradient 3.8 mmHg LVOT Peak Velocity 75.8 cm/s LVOT Peak Gradient 2.3 mmHg LVOT Velocity Time Integral 14.5 cm LVOT Stroke Volume 52.2 cm??? LVOT Stroke Volume Index 23.6 ml/m??? LVOT Cardiac Index 2058.4 cm???/min???m??? AV Area Cont Eq pk 2.8 cm??? MV Peak Velocity 93.3 cm/s MV Peak Gradient 3.5 mmHg MV Mean Velocity 41.6 cm/s MV Mean Gradient 0.9 mmHg MV Velocity Time Integral 21.7 cm MR Peak Velocity 298.5 cm/s MR Peak Gradient 35.6 mmHg Mitral E Point Velocity 77.2 cm/s Mitral A Point Velocity 53.1 cm/s Mitral E to A Ratio 1.5 MV Deceleration Time 145.1 ms TR Peak Velocity 262.0 cm/s TR Peak Gradient 27.5 mmHg Right Ventricular Systolic Press 32.9 mmHg PV Peak Velocity 108.3 cm/s PV Peak Gradient 4.7 mmHg FINDINGS Left Ventricle Normal LV size and wall thickness. Left ventricular ejection fraction is estimated at 50-55 %. Right Ventricle Normal right ventricular size. RVSP= 40mmHg. Right Atrium Normal right atrial size. Left Atrium Moderately increased left atrial volume. Mildly increased left atrial area. LA volume index= 39ml/m2 Mitral Valve Structurally normal mitral valve. Mild MR. Aortic Valve Trileaflet aortic valve. No aortic valve stenosis or regurgitation. Tricuspid Valve Structurally normal tricuspid valve. Moderate TR. Pulmonic Valve Pulmonic valve not well visualized. Mild PI. Pericardium Normal pericardium. Aorta Normal size aortic root. CONCLUSIONS Normal LV size and systolic function Subtle inferior basal hypokinesis Previewed by: Dr. Akin Bland MD (Electronically Signed) Final Date: 29 January 2023 17:03
[2023-01-29] MEDS: ACETAMINOPHEN TAB 325 MG TAB PO PRN (17:18)
[2023-01-29 17:47] VITALS: RESP 18
[2023-01-29] MEDS ORDERED: DEXTROSE 5%-0.45% NACL 1,000 ML IV SCH (20:45)
--- NOTE | 2023-01-29 20:55 | P.HPIM ---
History of Present Illness H&P Date: 01/29/23 Chief Complaint: Not feeling well This is a pleasant 77-year-old patient who follows with Dr. Boyd. Chronic stable medical conditions include CAD with prior bypass, hypertension, hyperlipidemia. 3 days ago patient started feeling unwell. Febrile. Tired. No chest pain or palpitation. Congested chest. Patient actually passed out. No sputum production. No change in bowel pattern. Some muscle aching. Presented to the ER. Found to be in atrial flutter fibrillation. Tested positive for COVID 19. Patient denies any shortness of breath. Pulse ox is good. Review of systems: GEN.: Tired fever decreased appetite EYES: None HEENT: None NECK: None RESPIRATORY: Nasal chest congestion CARDIOVASCULAR: None GASTROINTESTINAL: None GENITOURINARY: None MUSCULOSKELETAL: Muscle aches LYMPHATICS: None HEMATOLOGICAL: None PSYCHIATRY: None NEUROLOGICAL: No focal signs are Past medical history to include: TIA, hypertension, hyperlipidemia, CAD with bypass in 2010, and a stent. 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 . Alcohol occasionally. No smoking. Physical examination: VITAL SIGNS: 102.3, 110, 18, 108/91, 98% room air GENERAL: BMI 24.3, up in a recliner tired. EYES: Pupils equal. Conjunctiva normal. HEENT: External appearance of nose and ears normal, oral cavity grossly normal. NECK: JVD not raised; masses not palpable. HEART: First and second heart sounds are normal; no edema. LUNGS: Respiratory rate increased; coarse scattered crackles. ABDOMEN: Soft, nontender, liver spleen not palpable, no masses palpable. PSYCH: Alert and oriented x3; mood and affect normal. MUSCULOSKELETAL:No Clubbing/cyanosis;muscles-grossly intact. OA NEUROLOGICAL: Cranial nerves grossly intact; no facial asymmetry, power and sensation grossly intact. LYMPHATICS: No lymph nodes palpable in the axilla and neck INVESTIGATIONS, reviewed in the clinical context: January 28: White count 7.1 hemoglobin 12.8 platelets 139 sodium 137 potassium 4.3 BUN 27 creatinine 0.84 Troponin I 0.020, 0.019 ProBNP 4520 COVID-19 PCR: Detected [negative for influenza type A, B, RSV] EKG tracing personally reviewed by me-atrial flutter, rate of 101. Nonspecific ST-T wave changes. Chest x-ray film personally reviewed by me-hyperinflation. Some basilar infilt rates CT brain without contrast: No specific white matter changes. CT angiogram chest: Evidence of pulmonary embolism. Somewhat spiculated right middle lobe 7 mm pulmonary nodule along the minor fissure. Also in the left lower lobe. Ultrasound Doppler lower extremity: Negative for DVT bilateral 2-D echocardiogram: EF 50-55%. Moderate TR. Subtle inferior basal hypokinesis. Assessment and plan: -Sepsis secondary to COVID 19 pneumonitis. IV fluids. Supportive care. -Syncope likely from sepsis and atrial flutter Telemetry -Moderate tricuspid regurgitation -COVID 19 pneumonitis. Pulse ox borderline of 93-94%. Initially 95%. At dexamethasone 6 mg today. -Abnormal computed tomography scan of the chest with nodules. Consult pulmonary. -Atrial flutter. Toprol-XL 50 mg today. Eliquis. -CAD with a prior history of stent Aspirin. Toprol-XL. Lipitor. -Hyperlipidemia Lipitor -Essential hypertension Toprol Care was discussed with patient. Questions answered. Supplement oxygen. If pulse ox below 93%. Discussion and discharge planning more than 35 minutes Past Medical History Past Medical History: CVA/TIA, Hyperlipidemia, Hypertension History of Any Multi-Drug Resistant Organisms: None Reported Past Surgical History: Coronary Bypass/CABG Additional Past Surgical History / Comment(s): Hip replacement x3, CABG 2011, one stent 2010. Past Psychological History: No Psychological Hx Reported Past Alcohol Use History: None Reported, Occasional Past Drug Use History: None Reported - Past Family History Father Family Medical History: Cancer Mother Family Medical History: CVA/TIA Medications and Allergies Home Medications Medication Instructions Recorded Confirmed Type Aspirin 81 mg PO HS 01/09/14 01/28/23 History Metoprolol Tartrate 25 mg PO DAILY 01/09/14 01/28/23 History Simvastatin [Zocor] 20 mg PO HS 01/28/23 01/28/23 History Allergies Allergy/AdvReac Type Severity Reaction Status Date / Time No Known Allergies Allergy Verified 01/28/23 18:21 Physical Exam Vitals: Vital Signs Temp Pulse Pulse Resp BP Pulse Ox 01/29/23 09:18 98.0 F 90 18 108/71 93 L 01/29/23 06:25 101 F H 92 18 161/91 98 01/29/23 05:20 102.3 F H 110 H 18 98 01/28/23 21:35 99.3 F 87 20 112/67 95 01/28/23 19:15 100.3 F H 87 18 112/72 98 01/28/23 17:58 79 16 116/78 98 01/28/23 17:07 77 01/28/23 17:00 68 16 120/68 98 01/28/23 16:33 86 16 114/72 97 01/28/23 13:21 98.8 F 106 H 18 138/72 96 Results CBC & Chem 7: 01/29/23 07:29 01/29/23 07:29 Labs: Abnormal Lab Results - Last 24 Hours (Table) 01/28/23 01/28/23 01/28/23 Range/Units 13:51 13:51 16:33 RBC 4.04 L (4.30-5.90) m/uL Hgb 12.8 L (13.0-17.5) gm/dL Hct 38.3 L (39.0-53.0) % Plt Count 139 L (150-450) k/uL Lymphocytes # 0.4 L (1.0-4.8) k/uL D-Dimer 3.01 H (<0.60) mg/L FEU BUN 27 H (9-20) mg/dL Glucose 125 H (74-99) mg/dL Urine Protein (Negative) Urine Ketones (Negative) Urine Blood (Negative) Hyaline Casts (0-2) /lpf Urine Mucus (None) /hpf SARS-CoV-2 (PCR) (Not Detectd) 01/28/23 01/28/23 01/29/23 Range/Units 16:56 17:04 07:29 RBC 3.94 L (4.30-5.90) m/uL Hgb 12.4 L (13.0-17.5) gm/dL Hct 37.2 L (39.0-53.0) % Plt Count 127 L (150-450) k/uL Lymphocytes # 0.3 L (1.0-4.8) k/uL D-Dimer (<0.60) mg/L FEU BUN (9-20) mg/dL Glucose (74-99) mg/dL Urine Protein Trace H (Negative) Urine Ketones Trace H (Negative) Urine Blood Trace H (Negative) Hyaline Casts 7 H (0-2) /lpf Urine Mucus Moderate H (None) /hpf SARS-CoV-2 (PCR) Detected A (Not Detectd) 01/29/23 Range/Units 07:29 RBC (4.30-5.90) m/uL Hgb (13.0-17.5) gm/dL Hct (39.0-53.0) % Plt Count (150-450) k/uL Lymphocytes # (1.0-4.8) k/uL D-Dimer (<0.60) mg/L FEU BUN 23 H (9-20) mg/dL Glucose 129 H (74-99) mg/dL Urine Protein (Negative) Urine Ketones (Negative) Urine Blood (Negative) Hyaline Casts (0-2) /lpf Urine Mucus (None) /hpf SARS-CoV-2 (PCR) (Not Detectd)
[2023-01-29] MEDS ORDERED: ATORVASTATIN 20 MG TAB PO SCH (21:00)
[2023-01-29] MEDS: ASCORBIC ACID 500 MG TAB PO SCH (22:23)
[2023-01-29] MEDS: dexAMETHasone 2 MG TAB PO SCH (22:23)
[2023-01-29] MEDS: ASPIRIN 81 MG PO SCH (22:23)
[2023-01-30 06:48] VITALS: TEMP 98.5
[2023-01-30] MEDS: METOPROLOL SUCCINATE (ER) 50 MG TAB.ER.24H PO SCH (09:50)
[2023-01-30] MEDS: ASCORBIC ACID 500 MG TAB PO SCH (09:50)
[2023-01-30] MEDS: dexAMETHasone 2 MG TAB PO SCH (09:50)
[2023-01-30] MEDS: APIXABAN 5 MG TAB PO SCH (09:50)
--- NOTE | 2023-01-30 11:06 | P.PN ---
Subjective HISTORY OF PRESENT ILLNESS: This is a 77-year-old male with a past medical history significant for hyperlipidemia and coronary artery disease with previous 2 vessel CABG in 2013. Patient follows with Dr. Maldonado out of town. We have been asked to see the patient in consultation for atrial fibrillation. Patient examined at the bedside in the emergency room. The patient states he has been feeling unwell for the past 2-3 days. He reports generalized weakness, decreased appetite, and cough. He reports 2 nights ago he got up to use the bathroom around 10 PM and after using the restroom he had a syncopal episode next to the toilet. He states that he walked back to his bed and went back to sleep. He states he got up again in the middle of the night use the bathroom and while walking back to bed he had another syncopal episode. The patient denied having any chest pain or pressure. He denied any shortness of breath. He denied any dizziness or lightheadedness. He denied having any palpitations. The patient does report having a history of syncope when he has been dehydrated in the past. He also reports having syncopal episodes after his hip replacements when he got out of bed too quickly. The patient presented to the hospital for further evaluation. The patient was found to be positive for Covid 19. He is currently febrile this morning with a temperature of 101.0F. The patient was also found to be in A. fib with a heart rate of 101 upon admission to the hospital. The patient denies a history of atrial fibrillation. He denied having any palpitations. The patient has since converted to sinus mechanism and is maintaining sinus mechanism this morning. * EKG reveals atrial fibrillation with heart rate of 101. No signs of acute ischemia. * Chest xray no evidence for acute process. * Current home cardiac medications include atorvastatin 20 mg at night, metoprolol titrate 25 mg daily, aspirin 81 mg at night * Venous Doppler: Negative for DVT bilaterally 01/30/2023 Patient examined this morning at the bedside. Patient denies chest pain or pressure. He denies shortness of breath. He does report a productive cough with occasional blood-tinged sputum. Telemetry reveals sinus mechanism with a heart rate in the 70s. Echocardiogram completed revealing ejection fraction 50- 55%, moderate TR, and mild MR PHYSICAL EXAM: VITAL SIGNS: Reviewed. GENERAL: Well-developed in no acute distress. HEENT: Head is normocephalic. Pupils are equal, round. Sclerae anicteric. Mucous membranes of the mouth are moist. Neck supple. No JVD or thyromegaly LUNGS: Respirations even and unlabored. Lungs essentially clear to auscultation bilaterally. HEART: Regular rate and rhythm. S1 and S2 heard. ABDOMEN: Soft. Nondistended. Nontender. EXTREMITIES: Normal range of motion. No clubbing or cyanosis. Peripheral pulses intact. No lower extremity edema NEUROLOGIC: Awake and alert. Oriented x 3. ASSESSMENT: Generalized malaise Decreased oral intake Acute Covid 19 Febrile illness, secondary to above Syncope, likely secondary to orthostatic hypotension/hypovolemia due to decreased oral intake New onset paroxysmal atrial fibrillation, currently maintaining sinus mechanism Coronary artery disease with previous 2 vessel CABG, 2012, at [facility] Hyperlipidemia PLAN: Continue current cardiac medications Patient is stable for discharge home today from a cardiac standpoint Patient to follow up with his primary live games dealer post discharge Nurse practitioner note has been reviewed by physician. Signing provider agrees with the documented findings, assessment, and plan of care. Objective - Vital Signs Vital signs: Vital Signs Temp 98.5 F 01/30/23 04:00 Pulse 72 01/30/23 04:00 Resp 18 01/30/23 04:00 BP 128/80 01/30/23 04:00 Pulse Ox 96 01/30/23 04:00 FiO2 Intake & Output 01/29/23 01/30/23 01/30/23 18:59 06:59 18:59 Intake Total 0 480 Balance 0 480 Intake: Oral 0 480 Other: Voiding Method Toilet - Labs CBC & Chem 7: 01/29/23 07:29 01/29/23 07:29
[2023-01-30 12:49] VITALS: BP 125/75; PULSE 83
--- NOTE | 2023-01-30 16:31 | P.DS ---
Providers Date of admission: 01/28/23 18:53 Expected date of discharge: 01/30/23 Attending physician: Umberto Mohamud Consults: 01/28/23 18:53 Consult Physician Routine Consulting Provider: [facility] Consult Reason/Comments: new onset afib Do you want consulting provider notified?: Yes Primary care physician: [facility] Course: Chief Complaint: Not feeling well This is a pleasant 77-year-old patient who follows with Dr. Boyd. Chronic stable medical conditions include CAD with prior bypass, hypertension, hyperlipidemia. 3 days ago patient started feeling unwell. Febrile. Tired. No chest pain or palpitation. Congested chest. Patient actually passed out. No sputum production. No change in bowel pattern. Some muscle aching. Presented to the ER. Found to be in atrial flutter fibrillation. Tested positive for COVID 19. Patient denies any shortness of breath. Pulse ox is good. January 30: Patient in sinus rhythm. Respiratory symptoms minimal. Patient very keen to go home. Pulse ox is good. Eating well. No cardiac symptoms. Cleared by cardiology. Ritika. Questions answered. Patient follow-up with his own sumatra opener. 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 Past medical history to include: TIA, hypertension, hyperlipidemia, CAD with bypass in 2010, and a stent. 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 . Alcohol occasionally. No smoking. Physical examination: VITAL SIGNS: 98.5, 83, 18, 125-35, 96% room air GENERAL: Up in bed, comfortable EYES: Pupils equal. Conjunctiva normal. HEENT: External appearance of nose and ears normal, oral cavity grossly normal. NECK: JVD not raised; masses not palpable. HEART: First and second heart sounds are normal; no edema. LUNGS: Respiratory rate normal; air entry ABDOMEN: Soft, nontender, liver spleen not palpable, no masses palpable. PSYCH: Alert and oriented x3; mood and affect normal. MUSCULOSKELETAL:No Clubbing/cyanosis;muscles-grossly intact. OA INVESTIGATIONS, reviewed in the clinical context: January 28: White count 7.1 hemoglobin 12.8 platelets 139 sodium 137 potassium 4.3 BUN 27 creatinine 0.84 Troponin I 0.020, 0.019 ProBNP 4520 COVID-19 PCR: Detected [negative for influenza type A, B, RSV] EKG tracing personally reviewed by me-atrial flutter, rate of 101. Nonspecific ST-T wave changes. Chest x-ray film personally reviewed by me-hyperinflation. Some basilar infiltrates CT brain without contrast: No specific white matter changes. CT angiogram chest: Evidence of pulmonary embolism. Somewhat spiculated right middle lobe 7 mm pulmonary nodule along the minor fissure. Also in the left lower lobe. Ultrasound Doppler lower extremity: Negative for DVT bilateral 2-D echocardiogram: EF 50-55%. Moderate TR. Subtle inferior basal hypokinesis. Assessment and plan: -Sepsis secondary to COVID 19 pneumonitis.: Improved IV fluids. Supportive care. -Syncope likely from sepsis and atrial flutter Telemetry -Moderate tricuspid regurgitation -COVID 19 pneumonitis. Pulse ox borderline of 93-94%. Initially 95%.: Improved dexamethasone 6 mg -Abnormal computed tomography scan of the chest with nodules. Discussed with the patient to follow-up with Dr. 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 -Atrial flutter. Toprol-XL 50 mg today. Eliquis. -CAD with a prior history of stent Aspirin. Toprol-XL. Lipitor. -Hyperlipidemia Lipitor -Essential hypertension Toprol Disposition: Home Plan - Discharge Summary Discharge Rx Participant: No New Discharge Prescriptions: New Metoprolol Succinate (ER) [Toprol XL] 50 mg PO DAILY #60 tab Ascorbic Acid [Vitamin C] 1,000 mg PO DAILY #30 tab Apixaban [Eliquis] 5 mg PO BID #60 tab Continue Aspirin 81 mg PO HS Simvastatin [Zocor] 20 mg PO HS Discontinued Metoprolol Tartrate 25 mg PO DAILY Discharge Medication List Aspirin 81 mg PO HS 01/09/14 [History] Simvastatin [Zocor] 20 mg PO HS 01/28/23 [History] Apixaban [Eliquis] 5 mg PO BID #60 tab 01/30/23 [Rx] Ascorbic Acid [Vitamin C] 1,000 mg PO DAILY #30 tab 01/30/23 [Rx] Metoprolol Succinate (ER) [Toprol XL] 50 mg PO DAILY #60 tab 01/30/23 [Rx] Follow up Appointment(s)/Referral(s): dr candido [Other] - 1 Week Jesus Boyd DO [Primary Care Provider] - 1-2 days Patient Instructions/Handouts: A-fib (Atrial Fibrillation) (DC) Discharge Disposition: HOME SELF-CARE
--- NOTE | 2023-02-03 09:00 | CDI ---
Documentation Clarification Form Date: 02/03/2023 07:55:10 AM From: Kathy Laurent RN, CCDS Admit Date: 01/28/2023 06:53:00 PM Patient Name: Graeme Cleveland Visit Number: [id number] Discharge Date: 01/30/2023 01:56:00 PM ATTENTION: The Clinical Documentation Specialists (CDI) and [facility] Coding Staff appreciate your assistance in clarifying documentation. Please respond to the clarification below the line at the bottom and electronically sign. The CDI & [facility] Coding staff will review the response and follow-up if needed. Please note: Queries are made part of the Legal Health Record. If you have any questions, please contact the author of this message via ITS. Dr. Umberto Mohamud Sepsis secondary to COVID 19 Pneumonitis is documented in the H/P and subsequent progress notes which may lack sufficient clinical evidence/support in the medical record. Additional clarification is requested. Admit 01/28/23-01/30/23 History/Risk Factors: CVA/TIA, Hyperlipidemia, Hypertension Clinical Indicators: 77-year-old male presents ED from PCPs clinic for evaluation of Atrial fibrillation, 2 syncopal episodes. Denies any coughing, nausea, vomiting, and abdominal pain. Denies shortness of breath. Alert and oriented x3. Respiratory: Clear breath sounds bilaterally. No wheezes, rales or rhonchi. 01/28 VS: (13:21) 138/72 106 18 96% RA 01/28 VS: (19:15) 112/; 72 87 18 100.3 98% RA 01/29 (06:25) 161/91 92 18 101 98% RA 01/28 CTA: No evidence of pulmonary embolism. Pulmonary nodule right middle lobe and left lower lobe. 01/28 CXR: Eventration of the right diaphragm. No evidence for acute process. 01/28 Labs: WBC 7.1, HGB 12.8, Neutrophils 84, D-Dimer 3.01, BUN 27, CR 0.84, BNP 4520 COVID-Detected 01/29 H/P: Tested positive for COVID 19. Patient denies any shortness of breath. VS 102.3, 110, 18, 108/91, 98% room air Chest x-ray film personally reviewed by me-hyperinflation. Some basilar infiltrates assessment and plan: -Sepsis secondary to COVID 19 pneumonitis. Treatment: Cardiac/Telemetry Monitoring Monitor O2 Sat's (Titrate) D5.9 @ 100MLS/HR 01/29-01/30 Dexamethasone 6 MG PO 01/29-01/30 Please clarify if Sepsis is a valid diagnosis? [ + ] Yes, Sepsis is present as evidence by (additional clinical support): [ ] No, Sepsis is ruled out [ ] Other (please specify diagnosis) [ ] Unable to determine (Template Last Revised: June 2020) MTDD
== END 2023-01-30 13:56 | disposition home or self-care (01) | DRG 871 ==
LOC: EC 13:14 → 3SCARD 18:53 → OBSVTOIN 18:53 → 3SCARD 20:03
PROVIDERS: ADMIT Hospitalist; ATTEND Hospitalist
DX: A41.89 Other specified sepsis (principal); J12.82 Pneumonia due to coronavirus disease 2019; U07.1 COVID-19; I48.0 Paroxysmal atrial fibrillation; E78.5 Hyperlipidemia, unspecified; E86.1 Hypovolemia; I07.1 Rheumatic tricuspid insufficiency; I10 Essential (primary) hypertension; I25.10 Atherosclerotic heart disease of native coronary artery without angina pectoris; I95.1 Orthostatic hypotension; Z96.649 Presence of unspecified artificial hip joint; Z20.822 Contact with and (suspected) exposure to COVID-19; Z79.82 Long term (current) use of aspirin; Z79.899 Other long term (current) drug therapy; Z86.73 Personal history of transient ischemic attack (TIA), and cerebral infarction without residual deficits; Z95.1 Presence of aortocoronary bypass graft; Z95.5 Presence of coronary angioplasty implant and graft
CPT/HCPCS: 36415; 70450; 71046; 71275; 80048; 80053; 81001; 83880; 84443; 84484; 85025; 85379; 85610; 85730; 87636; 93005; 93306; 93970; 96372; 99285

== ENCOUNTER → 2024-06-16 | Outpatient (CLI) | payer MEDICARE ==
--- NOTE | 2024-06-16 10:24 | US ---
EXAMINATION TYPE: US bladder DATE OF EXAM: 06/16/2024 COMPARISON: NONE CLINICAL INDICATION: Male, 78 years old with history of R33.9 RETENTION OF URINE, UNSPECIFIED; TECHNIQUE: Grayscale and color doppler imaging of the bilateral kidneys and urinary bladder. FINDINGS: EXAM MEASUREMENTS: Post Void Residual Volume: -- mL RN NEW GRADUATE NOTES: Prostate noted measuring 4.3 x 3.2 x 3.6cm Color Doppler performed to assess ureteral jets. Bilateral Jets seen: Yes Normal Post Void Residual (less than 50ml): Yes IMPRESSION: 1. No evidence for acute process. 2. Prostatomegaly, correlate with serum PSA. [facility], , 06/16/2024 10:22 AM
== END | disposition home or self-care (01) ==
LOC: RADUSWWP 09:06
PROVIDERS: ATTEND Family Medicine
DX: N40.0 Benign prostatic hyperplasia without lower urinary tract symptoms (principal); R33.9 Retention of urine, unspecified
CPT/HCPCS: 76857

== ENCOUNTER → 2024-06-27 | Outpatient (CLI) | payer MEDICARE ==
[2024-06-27 09:48] LABS: African American GFR (CKD) >90 (>60 ml/min/1.73 sqM); Blood Urea Nitrogen 25 mg/dL (9-20); Non-African American GFR(CKD) >90 (>60 ml/min/1.73 sqM)
--- NOTE | 2024-06-27 11:01 | CT ---
EXAMINATION TYPE: CT chest w con DATE OF EXAM: 06/27/2024 COMPARISON: 01/28/2023 CLINICAL INDICATION: Male, 78 years old with history of R91.8 OTHER NONSPECIFIC ABNORMAL FINDING OF L ARACELI F; PHH, lung nodule TECHNIQUE: CT scan of the chest is performed with IV Contrast, patient injected with 100 mL of Isovue 300. MIP Images are created on CT scanner and reviewed. 3D reconstructed images are created on an independent workstation and reviewed. CT DLP: [address] CTDI: mGy Automated exposure control for dose reduction was used. FINDINGS: LUNGS: 3 stable pulmonary nodules are identified measuring 7 mm right upper lobe image 26, 5.8 mm rig ht lower lobe image 47 and 5 mm left lower lobe image 44. No new nodules are present. No evidence for infiltrate. There is no pleural effusion or pneumothorax seen. The tracheobronchial tree is patent. MEDIASTINUM: There are no greater than 1 cm hilar or mediastinal lymph nodes. No pericardial effusi on is seen. OTHER: No additional significant abnormality is seen. IMPRESSION: Stable nonspecific nodularity within the lungs. Follow-up in 6 months advised. Follow-up recommendations for incidental pulmonary nodules are per [employer] or [employer]. [facility], , 06/27/2024 10:58 AM
== END | disposition home or self-care (01) ==
LOC: RADCTMAIN 09:06
PROVIDERS: ATTEND Family Medicine
DX: R91.8 Other nonspecific abnormal finding of lung field (principal)
CPT/HCPCS: 82565; 84520; 71260; 36415; Q9967

== ENCOUNTER → 2024-09-26 | Outpatient (CLI) | payer MEDICARE ==
--- NOTE | 2024-09-26 14:15 | US ---
EXAMINATION TYPE: US venous doppler duplex LE BI; LOWER EXTREMITY VENOUS INSUFFICIENCY DATE OF EXAM: 09/26/2024 COMPARISON: NONE CLINICAL INDICATION: Male, 78 years old with history of I87.2 VENOUS INSUFFICIENCY (CHRONIC) (PERIPHE RAL); difficulty walking, edema TECHNIQUE: Grayscale color Doppler and spectral Doppler imaging of the lower extremity veins. FINDINGS: SIDE PERFORMED: Bilateral 1) Color flow is present and patency is documented in the following vessels. No DVT or SVT is noted . Common Femoral Vein Deep Femoral Vein Femoral Vein Popliteal Vein Proximal Calf Veins Greater Saph Vein Upper Small Saph Vein 2) There is venous reflux noted at the following venous levels: Left Fv and Left GSV within calf Color Doppler imaging shows patency of the vessels. Spectral waveforms are within normal limits. IMPRESSION: No evidence for venous insufficiency/reflux. [facility], , 09/26/2024 2:12 PM
== END | disposition home or self-care (01) ==
LOC: RADUSWWP 12:23
PROVIDERS: ATTEND Family Medicine
DX: I87.2 Venous insufficiency (chronic) (peripheral) (principal)
CPT/HCPCS: 93970